=== PATIENT | male | born 1940 | race Caucasian/White ===

== ENCOUNTER 2019-09-08 12:17 | Emergency (ER) | payer MEDICARE, BC ==
[2019-09-08 12:58] LABS: #Lymphocytes 1.2 thou/uL (1.20-3.40); #Monocytes 0.7 thou/uL (0.11-0.59); %Eosinophils 0.3 % (0.0-10.0); %Lymphocytes 9.8 % (21.0-51.0); %Neutrophils 83.9 % (42.0-75.0); Hemoglobin 14.7 g/dL (14.0-18.0); Mean Corpuscular HGB CONC 33.2 g/dL (32.0-36.0); Mean Corpuscular Hemoglobin 31.5 pg (27.0-31.0); Mean Corpuscular Volume 94.9 fL (78.0-98.0); Mean Platelet Volume 8.8 fL (7.4-10.4); Platelet Count 339 thou/uL (130-400); RBC Distribution Width 12.8 % (11.5-14.5); Red Blood Cell (RBC) Count 4.68 mill/uL (4.70-6.10); White Blood Cell (WBC) Count 11.9 thou/uL (4.8-10.8)
[2019-09-08] MEDS ORDERED: Ondansetron PF 4 MG/2 ML Vial ONE (13:01)
[2019-09-08 13:31] LABS: ALT (SGPT) 110 U/L (8-55); AST (SGOT) 41 U/L (5-34); Albumin 3.8 g/dL (3.4-4.8); Alkaline Phosphatase 739 U/L (40-110); Anion Gap 17 mmol/L (10-20); BUN (Urea Nitrogen) 52 mg/dL (8.4-25.7); Bilirubin, Total 1.7 mg/dL (0.2-1.2); CK (CPK) 45 U/L (30-200); Calc. Creatinine Clearance 0 mL/min (70-130); Calcium 9.9 mg/dL (7.8-10.44); Carbon Dioxide 35 mmol/L (23-31); Chloride 99 mmol/L (98-107); Estimated GFR-MDRD 32; Glucose 158 mg/dL (83-110); Lipase 13 U/L (8-78); Potassium 3.3 mmol/L (3.5-5.1); Protein, Total 7.8 g/dL (5.8-8.1); Sodium 148 mmol/L (136-145)
[2019-09-08 13:47] LABS: CKMB 2.5 ng/mL (0-6.6)
[2019-09-08 13:50] LABS: Bilirubin 1+ (Negative); Blood, Urine 1+ (Negative); Clarity Turbid (Clear); Glucose, Urine (Dipstick) Normal (Negative); Leukocyte 250 Leu/uL (Negative); Nitrite Negative (Negative); Protein, Urine (Dipstick) 30 mg/dL (Neg-Trace); Squamous Epithelial 0-3 HPF (0-3); Urobilinogen 6 mg/dL (Less than 2)
[2019-09-08 13:51] LABS: Bacteria/HPF 1+ HPF (None Seen)
[2019-09-08] MEDS ORDERED: Iopamidol-370 76% 500 ML 1 ML ONE (13:55)
--- NOTE | 2019-09-08 14:31 | CT ---
CT abdomen and pelvis with IV contrast HISTORY: Abdomen pain. FINDINGS: There is a noncalcified 0.9 cm subpleural nodule at the right posterolateral costophrenic a ngle. A 0.5 cm nodule at the central right lung base, and a tiny nonspecific subpleural nodule at the right anterior lung base. Additional nonspecific atelectasis at the lung bases. Hyperdense stone in the gallbladder lumen. Radiopaque stent at the expected location of the pylorus a nd proximal duodenum. Marked fluid distention of the stomach. Calcification in coronary arteries and aorta. Surrounding the enteric stent at the pylorus is lobular circumscribed but irregular soft tissue densi ty mass, occupying the expected location of the pancreatic head also. Pancreas is not well defined. Multiple lobular low-density lesions, having the appearance of lymph nodes, are present within the ce ntral abdomen, measuring up to 3.7 cm length immediately posterior to the lateral segment left liver lobe, 2.6 cm within the right upper quadrant just lateral to the fluid distended gastric antrum , 2.4 cm length adjacent to the lesser curvature of the stomach, and 2.9 cm length immediately posterior to the left renal vein. There are tiny renal cysts. No evidence of urinary tract obstruction. Prominent degenerative changes of the lumbar spine. Diverticula arise from the colon without adjacent inflammation. Fecal distention of the rectum measur es up to 8.2 cm with relative thickening of the rectal wall given the amount of distention. Minimal stranding in the adjacent fat. IMPRESSION: Fluid distention of the stomach despite a stent at the level of the gastric pylorus and p roximal duodenum. It is possible that there is obstruction at the distal end of the stent. Irregular soft tissue density surrounds the stent and may represent the offending neoplasm. Multiple lobular intraperitoneal and retroperitoneal enlarged lymph nodes. Multiple nodules at the lung bases, measuring up to 0.9 cm. Likely metastatic disease. Fecal distention of the rectum with borderline/mild wall thickening. Clinical correlation regarding o ther signs and symptoms of stercoral proctitis is required. Cholelithiasis. Atherosclerosis.
== END 2019-09-08 18:32 | disposition home or self-care (01) ==
LOC: ERS 12:17
DX: C16.9 Malignant neoplasm of stomach, unspecified (principal); F03.90 Unspecified dementia, unspecified severity, without behavioral disturbance, psychotic disturbance, mood disturbance, and anxiety; K21.9 Gastro-esophageal reflux disease without esophagitis; F41.9 Anxiety disorder, unspecified; F32.9 Major depressive disorder, single episode, unspecified; Z87.891 Personal history of nicotine dependence; Z79.899 Other long term (current) drug therapy
CPT/HCPCS: 36415; 51701; 74177; 80053; 81003; 81015; 82274; 82550; 82553; 83690; 84484; 85025; 93005; 94760; 96361; 96374; J2405; Q9967